=== PATIENT | male | born 1980 | race Caucasian/White ===

== ENCOUNTER → 2019-07-29 06:00 | Outpatient (CLI) | payer OTHER, SELFPAY ==
[2019-07-24 13:27] VITALS: BMI 34.2
[2019-07-29 09:32] LABS: CRP < 2.90 mg/L (0.0-3.0); Cholesterol 212 mg/dL (200); High Density Lipoprotein 41 mg/dL; Triglycerides 195 mg/dL; Very Low Density Lipoprotein 39 mg/dL (5-40)
--- NOTE | 2019-07-29 17:05 | STRESSREP ---
Stress Test Report Exercise myocardial perfusion stress test. 39-year-old man with a history of chest pain midsternal tightenings. Stress protocol: Resting EKG demonstrates normal sinus rhythm with a rate of 72 bpm normal intervals are noted resting blood pressures 140/90 mmHg. The patient exercised according to the regular Gonzalo protocol for total duration of 11 minutes. Patient completed 2 minutes into stage IV of the Gonzalo protocol the maximum heart rate attained was 166 bpm which was 92% of maximum predicted heart rate the maximum workload was 13.4 metabolic equivalents. Patient maintained sinus rhythm throughout the recording. At rest there were no ST or T wave changes noted suggest ischemia at peak exercise upsloping ST changes were noted with no meet the criteria for ischemia. The resting blood pressures 140/90 with a peak blood pressure of 164/90 mmHg rate pressure product was 27,200. At peak exercise the patient noted shortness of breath and mild chest tightness which subsided. Myocardial perfusion protocol. 14.4 mCi of technetium 99m sestamibi was injected at rest. Patient exercised according to regular Gonzalo protocol for 11 minutes at peak exercise 44.2 mCi of technetium 99m sestamibi was injected stress images were obtained stress and rest images were reconstructed and compared in the short axis vertical long horizontal long axis. Gated images were also obtained Perfusion SPECT analysis: Review of the stress images demonstrate normal uptake of tracer noted in all areas of myocardium there is a small area of the inferior wall on the stress images which demonstrated reduced perfusion. The resting images demonstrate a similar pattern. No obvious reversibility is noted suggest ischemia. Gated SPECT analysis: The gated ejection fraction is noted to be 46%. Conclusion: Exercise myocardial perfusion stress test with no evidence of ischemia at a high workload. Mild chest tightness noted during exercise of unknown significance. Low normal ejection fraction.
== END ==
PROVIDERS: Family Provider Family Medicine; PCP Family Medicine; Referring Provider Family Medicine; Visit Provider Family Medicine
DX: R06.00 Dyspnea, unspecified (principal); Z82.49 Family history of ischemic heart disease and other diseases of the circulatory system
CPT/HCPCS: 36415; 78452; 80061; 86140; 93017; A9500; A4216

== ENCOUNTER 2020-07-05 06:04 | Day surgery (SDC) | payer SELFPAY, OTHER ==
--- NOTE | 2020-06-25 02:34 | HP_ITS ---
Intake Vital Signs 06/25/20 BMI 34.2 06/25/20 Height 6 ft 1 in 06/25/20 Weight: 238 lb 06/25/20 BMI 31.4 06/25/20 BP 125/87 H 06/25/20 Blood Pressure Location Rt brachial 06/25/20 Position Sitting 06/25/20 Respiration 18 06/25/20 Pulse 85 06/25/20 Pulse Source Monitor 06/25/20 Temp 97.9 F 06/25/20 Temp Source Temporal 06/25/20 Pulse Oximetry (%) 98 06/25/20 Oxygen Delivery Method room air Intake Visit Reasons: Umbilical hernia Chief Complaint: Possible umbilical hernia Chute Loader Required: No Accompanied by: Is patient in pain?: No Allergies aspirin Adverse Reaction (Unknown, Verified 06/25/20 13:57) Tachycardia Medications tramadol 50 mg tablet 50 mg PO Q12H PRN #14 tab 06/22/20 [Rx Confirmed 06/25/20] PFSH Medical History Family history of cardiac disorder (Chronic) Diverticulitis (Acute) Back problem (Chronic) Umbilical hernia (Acute) Surgical History History of appendectomy (Acute) History of hernia repair (Acute) Family History Father Diabetes Mother Diabetes Brother CVA (cerebral vascular accident) Heart disease Social History (Updated 06/25/20 @ 14:[address] Benjy Abdalla MD) Smoking Status: Never smoker alcohol intake: never substance use type: does not use what type of physical activity do you participate in: none HPI HPI HPI: ZAMZAM GUILLERMO, is a 40 M who presents to the office today for HPI HPI Surgical H&P: Yes HPI: ZAMZAM GUILLERMO, is a 40 M who presents to the office today for umbilical pain. The patient reports he has had umbilical hernia for about 2 years. The patient says that it was very painful recently and almost brought him to the hospital. The pain did resolve over the next few days. He had no nausea or vomiting. Currently he is not having any pain. ROS General General: No weight change, appetite, fatigue, colon cancer, breast cancer or weakness HEENT HEENT: No difficulty swallowing, eye injury, eye surgery, swollen glands or hoarseness Endo Endocrine: No thyroid disease, diabetes mellitus, thyroid cancer, Hair loss, heat intolerance or cold intolerance Skin Skin: No rash or changing moles Breast Breast: No left breast lump, right breast lump, nipple discharge, breast pain, abnormal mammogram, abnormal US or breast enlargement Musc Musculoskeletal: No back problems, arthritis, rheumatoid arthritis, gout or joint pain Cardio Cardiovascular: No murmur, pacemaker, heart disease, atrial fibrillation, high blood pressure, heart attack, heart stent, palpitations, shortness of breat with exertion or chest pain Psych Psychiatric: No depression, anxiety or hearing voices Resp Respiratory: No shortness of breath, No sleep apnea, No cough, No COPD, No asthma, No emphysema, No wheezing Gastro Gastrointestinal: Yes abdominal pain, No nausea or vomiting, No diarrhea, No constipation, No blood in stool, No acid reflux, No hemorrhoids, No ulcers, No gallbladder problem, No black,tarry stools Nir Hematologic: No blood thinners, No blood disorders, No bleeding, No anemia, No blood clots Neuro Neurologic: No system reviewed and no additional complaints, except as docu, No as per HPI, No abnormal walking, No abnormal hearing, No abnormal movements, No abnormal speech, No behavioral changes, No burning sensations, No confusion, No seizure-like activity, No unsteadiness, No dizziness, No localized weakness, No frequent falls, No headache(s), No lack of coordination, No loss of vision, No memory loss, No numbness, No other visual disturbances, No radiating pain, No restless legs, No sensory deficit, No fainting, No tingling, No tremor(s), No weakness, No other Exam Const General: cooperative Orientation: alert, oriented x3 Chest Breast Palpation: No nipple discharge Resp Effort & Inspection: normal respiratory effort Auscultation: clear to auscultation bilaterally Cardio Rate: regular rate Rhythm: regular rhythm Heart Sounds: no murmurs GI Inspection: non-distended Palpation: soft, hernia umbilical, nontender Assessment & Plan Problems 1. Umbilical hernia without obstruction and without gangrene K42.9 Plan The patient has an umbilical hernia. It is reducible. I discussed repair with him. I discussed mesh versus no mesh repair and that I usually do not place mesh for hernias less than 1 cm. Patient would like mesh regardless of size as he does a lot of heavy lifting. I discussed surgery in detail with him as well as mesh placement and the risks of mesh. I discussed the risks including not limited to bleeding, infection, injury to underlying organs. Patient understands the risks and he is willing to proceed with umbilical hernia repair with mesh. We discussed the current risks associated with COVID-19. While it is understood that there is a community spread of COVID-19, the risk of ramon COVID-19 [address] [facility] ([facility]) is very low; however, the risk cannot be completely mitigated because of the community spread of the disease. We discussed in detail the risk of exposure to and/or potential harm posed by the COVID-19 virus with having a surgery/procedure at this time versus the risk of delaying the surgery/procedure. It is not possible to know either the risk of delaying the surgery or procedure or chance of getting an infection with perfect accuracy, but a joint decision was made to proceed at this time with the scheduled surgery/procedure as indicated on the consent form. Patient was notified that we will need to comply with any screening or testing [facility] wishes to perform or that surgery may be delayed for any positive results. Benjy Abdalla MD Pager: [facility] [address] [place] [address], [address] [place] [address] Office: Coding Level of Care Code Off vis,new,level 3 Diagnoses Umbilical hernia without obstruction and without gangrene K42.9 ??Obstruction and gangrene presence: without obstruction or gangrene 06/25/20 1434 <Electronically signed by Benjy jiménez MD> Date _ Benjy Abdalla MD I have re-examined the patient. There are no clinical changes since date of exam.
[2020-06-25 13:57] VITALS: BMI 34.2
[2020-07-05] VITALS (7 sets, daily range): BP systolic 130–150; BP diastolic 86–99; PULSE 74–85; RESP 16; TEMP 36.1–37.1; O2SAT 93–99; BMI 32.0
[2020-07-05] MEDS: Cefazolin 2 GM in 0.9% Normal Saline 100 ML IV (07:17)
--- NOTE | 2020-07-05 08:11 | OP.PCM_ITS ---
Problem List (1) Umbilical hernia Status: Acute Qualifiers: Obstruction and gangrene presence: without obstruction or gangrene Qualified Code(s): K42.9 - Umbilical hernia without obstruction or gangrene Report of Operation Date of Procedure: 07/05/20 Pre-Operative Diagnosis: Umbilical hernia Post-Operative Diagnosis: Same Surgery/Procedure Performed:: Umbilical hernia repair with mesh Description of Procedure: Patient was brought back the operating room and general anesthesia was induced. The abdomen was prepped and draped in usual sterile fashion. A curvilinear incision was injected with local anesthetic inferior to the umbilicus. Next an incision was made inferior to the umbilicus. This was dissected down to the fa scia using electrocautery. The umbilical stalk was elevated and dissected free from the hernia using sharp dissection. Next the hernia was reduced and the fascia was freed anteriorly. Next the hernia was reduced and a preperitoneal space was developed. A small ventralex mesh was placed into the preperitoneal space. The area was irrigated and suctioned dry. The mesh was sutured to the anterior fascia using 2-0 PDS suture. Next the fascial defect was approximated using interrupted 2-0 PDS sutures. The umbilical stalk was sutured to the fascia using a 3-0 Vicryl suture. The subcutaneous tissue was irrigated and suctioned and the skin was closed with running 4-0 Monocryl suture. Steri- Strips and bandage and cottonball were then applied. Patient tolerated procedure well was brought back to PACU in stable condition. Grafts/Implants Used: Small ventralex mesh - Admit VTE Documentation VTE Mechan Device Prophylaxis: SCD's
--- NOTE | 2020-07-05 08:21 | DCINST_ITS ---
Discharge Diet: Light diet - advance as tolerated Discharge Activity: Return to Normal Activity, May Not Drive - for 2-3 days or while taking narcotic pain meds., May Shower - with the bandage in place 1-2 days after surgery. Lifting Restrictions: 20 pounds for 4 weeks. Additional Activity Instructions:: Climbing stairs is fine, walking is encouraged. Sitting in bed may be uncomfortable. Sitting up using your lateral muscles (sitting up sideways) is usually more comfortable. Do not drive, work heavy equipment of sign legal documents for 24 hours. Pain medications may cause nausea, you should typically eat light foods as you take your pain medications. Pain medications may also cause constipation. If you have difficulty with this, discuss with your doctor. Call your doctor if your incision/area has: Continuous Slow Oozing, Sudden Increased Bleeding, Increased Pain/ Swelling, Increased Redness, Foul Smelling Discharge Call your doctor if you observe: Fever of 101 or Higher Suture Line Care: Avoid Pulling/Pushing, Avoid Pinching/Bending Change Dressing in (Days):: 3 - Leave steri-strips for 1 week. May protect with a guaze bandaid. Cleanse incision/area with: Keep Dressing Clean & Dry Allergies/Adverse Reactions: Allergies aspirin Adverse Reaction (Unknown, Verified 07/05/20 06:25) Tachycardia Medications to take at Discharge tramadol 50 mg tablet 50 mg PO Q12H PRN #14 tab 06/22/20 Oxycodone HCl/Acetaminophen [Percocet 5-325 mg Tablet] 1 - 2 tab PO Q6H PRN 5 Days #20 tab 07/05/20 The following prescriptions were given: Oxycodone HCl/Acetaminophen [Percocet 5-325 mg Tablet] 1 - 2 tab PO Q6H PRN 5 Days #20 tab PRN Reason: Pain Score 4-10/10 Transmission Status: Sent to [facility] Test Results: Test results from this visit will be discussed in further detail at your follow- up appointment, if applicable. Please Follow Up With: Benjy Abdalla MD When: Please call to schedule 2 week follow up appointment. [phone]
== END 2020-07-05 09:49 | disposition home or self-care (01) ==
LOC: SDC 06:05 → AC 06:06
PROVIDERS: Anesthesiology; PCP Family Medicine; Referring Provider Surgery; Visit Provider Surgery
PROC: (CPT 49585; principal; 2020-07-05 07:15)
DX: K42.9 Umbilical hernia without obstruction or gangrene (principal)
CPT/HCPCS: 49585; 87635; 94799; J7120; C1781; J2405; U0003

== ENCOUNTER → 2025-02-13 | Outpatient (CLI) | payer OTHER, SELFPAY ==
--- NOTE | 2025-02-13 15:51 | VDLE_ITS ---
Reason For Study Reason For Study: Left leg swelling RIGHT LEFT CFV is compressible, spontaneous, phasic, competent GSV is normal. and demonstrates normal augmentation. CFV is compressible, spontaneous, phasic, competent, Procedure and demonstrates normal augmentation. This is a venous duplex using B-mode, color flow and FV is compressible, spontaneous, phasic, competent spectral Doppler. and demonstrates normal augmentation. Exam performed in department. POP V is compressible, spontaneous, phasic, competent A preliminary report was called and/or faxed to and demonstrates normal augmentation. Skyler HASKINS. T/P Trunk is compressible. PTV is compressible. LT PerV is compressible. Nonvascularized structure noted in the left popliteal fossa to proximal calf muscle. VL/Venous Duplex US, Unilateral Interpretation Summary Deep veins of the left lower extremity are patent and compressible segmentally. There is no evidence of left lower extremity deep vein thrombosis. The left great saphenous vein appears patent an d compressible segmentally. Nonvascularized structure noted in the left popliteal fossa to proximal calf mu scle. Ordering Physician: Johanne Holland Referring Physician: Ramírez Faulkner M.D. Performed By: Mireya Mancia RVT
== END | disposition home or self-care (01) ==
LOC: CVS 15:50
PROVIDERS: PCP Family Medicine; Referring Provider Physician Assistant; Visit Provider Physician Assistant
DX: R22.42 Localized swelling, mass and lump, left lower limb (principal)
CPT/HCPCS: 93971